=== PATIENT | female | born 1985 | race Caucasian/White ===

== ENCOUNTER → 2018-10-30 13:24 | Outpatient (REF) | payer OTHER, SELFPAY ==
[2018-10-30 14:08] LABS: Influenza A and B by PCR Rapid Negative (Negative)
== END ==
LOC: LAB 13:24
PROVIDERS: Visit Provider Registered Nurse
DX: R50.9 Fever, unspecified (principal); J02.9 Acute pharyngitis, unspecified
CPT/HCPCS: 87400

== ENCOUNTER → 2019-08-06 09:33 | Outpatient (ROUT) | payer OTHER, SELFPAY ==
[2019-08-06 10:14] LABS: Influenza A - CEPHEID Flu A NEGATIVE (NEGATIVE); Influenza B - CEPHEID Flu B NEGATIVE (NEGATIVE)
[2019-08-06 13:14] LABS: Strep Grp A by PCR Rapid Negative
== END ==
PROVIDERS: Visit Provider Registered Nurse
DX: R05 Cough (principal); J02.9 Acute pharyngitis, unspecified
CPT/HCPCS: 87081; 87502; 87651

== ENCOUNTER → 2019-09-19 13:30 | Outpatient (CLI) | payer OTHER, SELFPAY ==
[2019-09-19 14:15] LABS: Influenza A - CEPHEID Flu A NEGATIVE (NEGATIVE); Influenza B - CEPHEID Flu B NEGATIVE (NEGATIVE)
== END ==
PROVIDERS: Visit Provider Nurse Practitioner
DX: J11.1 Influenza due to unidentified influenza virus with other respiratory manifestations (principal)
CPT/HCPCS: 87502

== ENCOUNTER → 2019-09-19 13:59 | Outpatient (CLI) | payer OTHER, SELFPAY ==
[2019-09-19 14:23] LABS: Monotest Negative (Negative)
== END ==
PROVIDERS: Referring Provider Nurse Practitioner; Visit Provider Nurse Practitioner
DX: J11.1 Influenza due to unidentified influenza virus with other respiratory manifestations (principal)
CPT/HCPCS: 36415; 86318; 87502

== ENCOUNTER 2019-10-04 16:11 | Emergency (ER) | payer OTHER, SELFPAY ==
[2019-10-04 16:21] VITALS: BP 119/70; PULSE 98; RESP 18; TEMP 37.1; O2SAT 100; BMI 35.9
--- NOTE | 2019-10-04 17:27 | DI.RAD.S_ITS ---
PROCEDURE: XR CHEST 2V INDICATIONS: chest pain, cough, fever, dizziness TECHNIQUE: 2 views of the chest were acquired. COMPARISON: None. FINDINGS: Surgical changes and devices: None. Lungs and pleura: Lungs are clear. No pleural effusions or pneumothorax. Mediastinum: Mediastinal contours are normal. Heart size is normal. Bones and chest wall: No suspicious bony abnormalities. Soft tissues appear unremarkable. IMPRESSION: No acute cardiopulmonary pathology. Dictated by: Darnell Fuller M.D. on 10/04/2019 at 17:58 Approved by: Darnell Fuller M.D. on 10/04/2019 at 17:58
[2019-10-04] MEDS: ONDANSETRON 4 MG ODT SL (18:01)
[2019-10-04] MEDS: ACETAMINOPHEN 325 MG TABLET 650 MG PO (18:02)
--- NOTE | 2019-10-04 18:09 | ED.URI ---
HPI - URI/Sore Throat <ESTELA Swan - Last Filed: 10/04/19 19:36> General Chief Complaint: Upper Respiratory Symptoms Stated Complaint: Sick for over 2 months Time Seen by Provider: 10/04/19 16:56 Source: patient Mode of arrival: Ambulatory Limitations: no limitations History of Present Illness HPI Narrative: This is a 33-year-old female, nonsmoker, who presents to ED with on and off body aches, chills, bilateral ear aches, sore throat, dizziness, short of breath, palpitations, fever T-max as 102 since August 02. 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 Patient reports patient has been seen at walk-in clinic and had several tests were conducted for her symptoms including flu swabs, Monospot, strep throat. Patient recently completed amoxicillin for 10 day course 4 days ago. Patient reports history of hypothyroidism and reports had thyroid function test done about 4 months ago. Patient reports she has been hydrated well with liquids without nausea or vomiting. Related Data Home Medications Medication Instructions Recorded Confirmed VITAMIN D (Vitamin D3) 2,000 units PO #0 09/21/17 09/19/19 multivitamin [Multiple Vitamins] 1 tab PO QDAY #0 09/21/17 09/19/19 tretinoin [Retin-A] #0 09/21/17 09/19/19 vit C,C-Uz-txucq-lutein-zeaxan 1 cap PO QDAY #0 09/21/17 09/19/19 [Ocuvite Lutein and Zeaxanthin] norethindrone (contraceptive) 0.35 mg PO DAILY 10/04/19 10/04/19 [Norlyda] Previous Rx's Medication Instructions Recorded amoxicillin-pot clavulanate 1 tab PO BID 7 Days #14 tab 10/04/19 [Augmentin] Allergies Allergy/AdvReac Type Severity Reaction Status Date / Time No Known Drug Allergies Allergy Verified 10/04/19 19:32 Review of Systems <ESTELA Swan - Last Filed: 10/04/19 19:36> Review of Systems Narrative: General: See HPI HEENT: Denies sinus pain, (+) ear pain, (+) sore throat, difficulty swallowing, (+) dizziness. Respiratory: Denies (+) dyspnea, (+) cough, wheezing, hemoptysis, sputum. Cardiovascular: Denies chest pain, (+) palpitations, orthopnea, edema. Gastrointestinal: Denies nausea, vomiting, abdominal pain, diarrhea, constipation, melena. : Denies dysuria, frequency, incontinence, hematuria, urinary retention. Musculoskeletal: Denies weakness, joint pain or bony pain. Skin: Denies rash, skin lesions, or other. Neurologic: Denies weakness, headache, numbness, change in speech, confusion, seizures, incoordination. Psychiatric: No concerning psychosocial issues. 12-point review of systems is negative except for those stated above. Patient History <ESTELA Swan - Last Filed: 10/04/19 19:36> Medical History Hypothyroidism (Acute) Surgical History S/P tonsillectomy and adenoidectomy (Acute) Social History Smoking Status: Never smoker Smoking Status: Never smoker alcohol intake frequency: a few times a month Substance Use Type: does not use Exam <ESTELA Swan - Last Filed: 10/04/19 19:36> Narrative Exam Narrative: GEN: Alert, oriented x 3, well appearing and nourished, and in no acute distress. Head: Normal cephalic, atraumatic. No scalp or temporal tenderness, palpable mass or rash. EYES: Pupils are equal, round, and reactive to light and accommodation. Extraocular muscles are intact bilaterally. There is no subconjunctival hemorrhage, exudate and sclera non-icteric. ENT: Bilateral auditory canals and tympanic membranes injected and dull. Hearing grossly intact. Nose without bleeding, purulent discharge or deviation. Facial sinuses nontender to palpate. Mucous membrane moist, no mucosal lesion. Throat without erythema, tonsillar hypertrophy or exudate. Uvula in midline, airway patent. Neck: Trachea in midline. No JVD, non-tender with anterior cervical lymphadenopathy. No masses or thyroid megaly. Supple, non-tender and no meningeal signs. CARDIAC: Normal regular rate and rhythm without murmurs, gallops, or rubs. No chest wall tenderness. No peripheral edema, cyanosis or pallor. Capillary refill is less than 2 seconds. RESPIRATORY: Lungs are clear to auscultate bilaterally. No cough, wheezes, rales, or rhonchi. No stridor, respiratory distress, increase work of breathing, or accessary muscle used. ABD: Abdomen soft, nontender and non-distended. No guarding or rebound tenderness to palpate. Bowel sounds are normal in all 4 quadrants. There is no palpable masses or organomegaly. EXT: Full painless ROM of all extremities with no loss of sensation, strength, effusion or edema. SKIN: Warm, dry, normal color for patient. No erythema, lesions or rash over visible areas. BACK: Nontender without deformity or crepitance. No flank tenderness. NEUROLOGICAL: Alert and oriented to place, time and person. Sensation and motor function intact bilaterally. No facial droops, dysphasia. PSYCHIATRIC: Good judgement and reason, without hallucinations, abnormal affect or abnormal behaviors during the examination. Initial Vital Signs Initial Vital Signs: Vital Signs Temperature 98.7 F 10/04/19 16:21 Pulse Rate 98 H 10/04/19 16:21 Respiratory Rate 18 10/04/19 16:21 Blood Pressure 119/70 10/04/19 16:21 Pulse Oximetry 100 10/04/19 16:21 <Andre Hester DO - Last Filed: 10/06/19 07:00> Initial Vital Signs Initial Vital Signs: Vital Signs Temperature 98.7 F 10/04/19 16:21 Pulse Rate 98 H 10/04/19 16:21 Respiratory Rate 18 10/04/19 16:21 Blood Pressure 119/70 10/04/19 16:21 Pulse Oximetry 100 10/04/19 16:21 Scores <ESTELA Swan - Last Filed: 10/04/19 19:36> GCS Luc coma scale eye opening: Spontaneous Luc coma scale verbal response: Orientated Luc coma scale motor response: Obey commands [place] coma scale total score: 15 Course <ESTELA Swan - Last Filed: 10/04/19 19:36> Orders Ordered: Discontinued Medications Acetaminophen (Tylenol) 650 mg PO NOW ONE Stop: 10/04/19 17:28 Last Admin: 10/04/19 18:02 Dose: 650 mg Documented by: ORIANA Ondansetron HCl (Zofran Odt) 4 mg SL NOW ONE Stop: 10/04/19 17:28 Last Admin: 10/04/19 18:01 Dose: 4 mg Documented by: ORIANA Vital Signs Vital signs: Vital Signs - 8 hr 10/04/19 16:21 Temperature 98.7 F Pulse Rate 98 H Respiratory Rate 18 Blood Pressure 119/70 Pulse Oximetry 100 <Andre Hester DO - Last Filed: 10/06/19 07:00> Orders Ordered: Discontinued Medications Acetaminophen (Tylenol) 650 mg PO NOW ONE Stop: 10/04/19 17:28 Last Admin: 10/04/19 18:02 Dose: 650 mg Documented by: ORIANA Ondansetron HCl (Zofran Odt) 4 mg SL NOW ONE Stop: 10/04/19 17:28 Last Admin: 10/04/19 18:01 Dose: 4 mg Documented by: ORIANA Vital Signs Vital signs: Vital Signs - 8 hr 10/04/19 16:21 Temperature 98.7 F Pulse Rate 98 H Respiratory Rate 18 Blood Pressure 119/70 Pulse Oximetry 100 MDM - URI/Sore Throat <ESTELA Swan - Last Filed: 10/04/19 19:36> Differential Diagnosis Differential diagnosis: Likely upper respiratory infection, otitis media, viral infection and influenza Medical Records Attestation: I reviewed the patient's medical records. Lab Data Attestation: I reviewed the patient's lab results. Result diagrams: 10/04/19 17:55 Labs: Lab Results 10/04/19 10/04/19 10/04/19 Range/Units 17:55 17:55 18:04 Sodium 139 (137-145) mmol/L Potassium 3.7 (3.4-5.1) mmol/L Chloride 100 (98-107) mmol/L Carbon Dioxide 28 (22-32) mmol/L BUN 12 (7-17) mg/dL Creatinine 0.80 (0.52-1.04) mg/dL Estimated GFR > 60.0 (>60) mL/min BUN/Creatinine Ratio 15.0 (6-22) Glucose 120 H (70-100) mg/dL Calcium 10.2 (8.4-10.2) mg/dL TSH 1.17 (0.47-4.68) uIU/mL Free T4 1.27 (0.78-2.19) ng/dL Influenza A (RT-PCR) Flu a negative (NEGATIVE) Influenza B (RT-PCR) Flu b negative (NEGATIVE) Point of Care Testing Test Results Negative Urine Dip Bedside Urine Glucose Negative Bedside Urine Bilirubin - Negative Bedside Urine Ketone - Negative Urine Specific [place] 1.015 Bedside Urine Occult Blood - Negative Bedside Urine pH 6.5 Bedside Urine Protein - Negative Bedside Urine Urobilinogen - Negative Bedside Urine Nitrite - Negative Bedside Urine Leukocytes - Negative Esterase Imaging Data Chest x-ray: Radiologist's Impression: [address] [address] XRay Report Signed Patient: Ernestine Romeo EMR#: [id number] : 1985Acct:[id number] Age/Sex: te of Service: 10/04/19 Loc: ED Accession Number: [id number] Procedure: XR chest 2V Ordering Provider: Serg Cuellar PROCEDURE: XR CHEST 2V INDICATIONS: chest pain, cough, fever, dizziness TECHNIQUE: 2 views of the chest were acquired. COMPARISON: None. FINDINGS: Surgical changes and devices: None. Lungs and pleura: Lungs are clear. No pleural effusions or pneumothorax. Mediastinum: Mediastinal contours are normal. Heart size is normal. Bones and chest wall: No suspicious bony abnormalities. Soft tissues appear unremarkable. IMPRESSION: No acute cardiopulmonary pathology. Dictated by: Darnell Fuller M.D. on 10/04/2019 at 17:58 Approved by: Darnell Fuller M.D. 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 Patient's flu swab was negative. Chest x-ray was negative for acute findings. Obtained TSH and free T4 due to patient's complaining of palpitation, lightheadedness, dizziness which were within normal limits. Bilateral ear exam are consistent with otitis media with injected and dull appearance. Patient reports discomfort in anterior cervical lymph nodes and went bilateral ears were tugged. Patient recently completed amoxicillin and she will be treated with Augmentin b.i.d. dose for 7 days. Patient advised to take utji-pcy-cgkxfkv Tylenol and or Motrin as needed for discomfort. Return precautions were discussed and patient verbalized understanding and agreement with the treatment plan. <Andre Hester DO - Last Filed: 10/06/19 07:00> Lab Data Labs: Lab Results 10/04/19 10/04/19 10/04/19 Range/Units 17:55 17:55 18:04 Sodium 139 (137-145) mmol/L Potassium 3.7 (3.4-5.1) mmol/L Chloride 100 (98-107) mmol/L Carbon Dioxide 28 (22-32) mmol/L BUN 12 (7-17) mg/dL Creatinine 0.80 (0.52-1.04) mg/dL Estimated GFR > 60.0 (>60) mL/min BUN/Creatinine Ratio 15.0 (6-22) Glucose 120 H (70-100) mg/dL Calcium 10.2 (8.4-10.2) mg/dL TSH 1.17 (0.47-4.68) uIU/mL Free T4 1.27 (0.78-2.19) ng/dL Influenza A (RT-PCR) Flu a negative (NEGATIVE) Influenza B (RT-PCR) Flu b negative (NEGATIVE) Point of Care Testing Test Results Negative Urine Dip Bedside Urine Glucose Negative Bedside Urine Bilirubin - Negative Bedside Urine Ketone - Negative Urine Specific [place] 1.015 Bedside Urine Occult Blood - Negative Bedside Urine pH 6.5 Bedside Urine Protein - Negative Bedside Urine Urobilinogen - Negative Bedside Urine Nitrite - Negative Bedside Urine Leukocytes - Negative Esterase Discharge Plan Departure Patient Disposition: Home Clinical Impression: Upper respiratory infection Qualifiers: URI type: unspecified URI Qualified Code(s): J06.9 - Acute upper respiratory infection, unspecified Otitis media Qualifiers: Otitis media type: unspecified Chronicity: acute Qualified Code(s): H66.90 - Otitis media, unspecified, unspecified ear Discharge Date/Time: 10/04/19 19:45 Instructions: DI for Middle Ear Infection-Adult Activity Restrictions/Additional Instructions: You have been diagnosed with [otitis media, middle ear infection. Flu swab test was negative today. Chest x-ray shows no indication for pneumonia. Urine test does not indicate infection. TSH and Free T4 levels were all within normal. Your symptoms such as dizziness, palpitation, lightheadedness, short of breath, body aches, fever are likely related to upper respiratory infection. However your middle ears are looking red and dull. Will treat you with another course of antibiotic medication. Please incorporate with probiotics if you do have to protect your GI]. What to do: *Take your medications as directed. Take Augmentin twice a day for next 7 days. This medication has been transmitted to [facility] in [facility]. You can take rxui-cgy-htjrsrk Tylenol and or Motrin as needed for discomfort. Please increase oral hydration. Good hand hygiene could prevent transmitting illness to others. *Follow up with your primary care provider in 2-3 days, call for an appointment. Let them know you were seen in the ED and that we asked you to be seen in follow up. *Return to ED if you have any new, worsening, or concerning symptoms, such as [chest pain, breathing difficulty, unable to tolerate fluids, high fever, severe pain, or any acute concerns]. Prescriptions: New amoxicillin-pot clavulanate [Augmentin] 875-125 mg tablet 1 tab PO BID 7 Days Qty: 14 RF: 0 No Action multivitamin [Multiple Vitamins] 1 EACH tablet 1 tab PO QDAY Qty: 0 RF: 0 tretinoin [Retin-A] 0.025 % cream Qty: 0 RF: 0 vit C,W-Hg-kosfs-lutein-zeaxan [Ocuvite Lutein and Zeaxanthin] 1 EACH capsule 1 cap PO QDAY Qty: 0 RF: 0 VITAMIN D (Vitamin D3) 2,000 units PO Qty: 0 RF: 0 norethindrone (contraceptive) [Norlyda] 0.35 mg tablet 0.35 mg PO DAILY RF: 0 Referrals: Mariama Gomez ARNP [Primary Care Provider] - <Andre Hester DO - Last Filed: 10/06/19 07:00> Sign Out Provider Sign Out Attestation: Dr Hester Co-Sign Statement: I was available for consultation during this patient's emergency department visit. This chart is signed by myself for administrative purposes only. I did not have direct contact with this patient during this visit. They were seen independently by the APC.
[2019-10-04 18:13] LABS: Blood Urea Nitrogen 12 mg/dL (7-17); Calcium 10.2 mg/dL (8.4-10.2); Carbon Dioxide 28 mmol/L (22-32); Chloride 100 mmol/L (98-107); Estimated Glomerular Filt Rate > 60.0 mL/min (>60); Glucose 120 mg/dL (70-100); HEMOLYSIS < 15 (0-50); Potassium 3.7 mmol/L (3.4-5.1); Sodium 139 mmol/L (137-145)
[2019-10-04 18:56] LABS: Influenza A - CEPHEID Flu A NEGATIVE (NEGATIVE); Influenza B - CEPHEID Flu B NEGATIVE (NEGATIVE)
[2019-10-04 19:01] LABS: Free T4, Direct Thyroxine 1.27 ng/dL (0.78-2.19)
[2019-10-04 19:14] LABS: Thyroid Stimulating Hormone 1.17 uIU/mL (0.47-4.68)
[2019-10-04 19:44] VITALS: BP 120/73; PULSE 90; RESP 18; TEMP 37.1; O2SAT 98
== END 2019-10-04 19:45 | disposition home or self-care (01) ==
PROVIDERS: Emergency Provider Nurse Practitioner Family; PCP Nurse Practitioner Family
DX: J06.9 Acute upper respiratory infection, unspecified (principal); H66.90 Otitis media, unspecified, unspecified ear; R07.9 Chest pain, unspecified; R05 Cough; R50.9 Fever, unspecified; R42 Dizziness and giddiness
CPT/HCPCS: 36415; 71046; 80048; 81003; 81025; 84439; 84443; 87502; 99284

== ENCOUNTER → 2019-10-18 14:56 | Outpatient (CLI) | payer OTHER, SELFPAY ==
[2019-10-18 15:30] LABS: Add Manual Diff / Slide Review NO; Basophils Absolute Auto 100 /uL (0-100); Basophils Percent Auto 0.5 % (0-2); Eosinophils Absolute Auto 600 /uL (0-450); Eosinophils Percent Auto 5.4 % (2-4); Hematocrit 39.2 % (36-46); Hemoglobin 13.4 g/dL (12.0-16.0); Lymphocytes Absolute Auto 2600 /uL (1100-4500); Lymphocytes Percent Auto 25.2 % (25-40); Mean Corpuscular HGB Conc 34.1 % (30-36); Mean Corpuscular Hemoglobin 31.3 PG (26-34); Mean Corpuscular Volume 91.8 fL (80-100); Monocytes Absolute Auto 500 /uL (0-900); Monocytes Percent Auto 4.5 % (3-14); Neutrophils Absolute Auto 6700 /uL (1500-7000); Neutrophils Percent Auto 64.4 % (50-75); Platelet Count 339 X10^3/uL (150-400); Red Blood Cell Count 4.27 X10^6/uL (4.0-5.2); Red Cell Distribution Width 13.3 % (11.6-14.8); White Blood Cell Count 10.4 X10^3/uL (4.5-11.0)
[2019-10-18 22:05] LABS: Influenza A - CEPHEID Flu A NEGATIVE (NEGATIVE); Influenza B - CEPHEID Flu B NEGATIVE (NEGATIVE)
[2019-11-02 18:39] LABS: COVID19 Sendout Not Detected (Not Detected)
== END ==
PROVIDERS: PCP Nurse Practitioner Family; Visit Provider Family Medicine
DX: R05 Cough (principal); R50.9 Fever, unspecified
CPT/HCPCS: 85025; 87502

== ENCOUNTER → 2019-10-18 15:31 | Outpatient (CLI) | payer OTHER, SELFPAY ==
--- NOTE | 2019-10-18 15:36 | DI.RAD.S_ITS ---
PROCEDURE: XR CHEST 2V INDICATIONS: Persistent cough with fever TECHNIQUE: 2 views of the chest were acquired. COMPARISON: [facility], CR, XR CHEST 2V, 10/04/2019, 17:35. FINDINGS: Surgical changes and devices: None. Lungs and pleura: Lungs are clear. No pleural effusions or pneumothorax. Mediastinum: Mediastinal contours are normal. Heart size is normal. Bones and chest wall: No suspicious bony abnormalities. Soft tissues appear unremarkable. IMPRESSION: Normal for age, source of current cough symptoms is not seen. Dictated by: Wayne Rose M.D. on 10/18/2019 at 16:53 Approved by: Wayne Rose M.D. on 10/18/2019 at 16:53
== END ==
PROVIDERS: PCP Nurse Practitioner Family; Referring Provider Family Medicine; Visit Provider Family Medicine
DX: J40 Bronchitis, not specified as acute or chronic (principal); R05 Cough; R50.9 Fever, unspecified
CPT/HCPCS: 71046; 85025; 87502; 87635

== ENCOUNTER → 2020-05-30 08:32 | Outpatient (CLI) | payer OTHER, SELFPAY ==
[2020-05-30 10:19] LABS: Hematocrit 40.9 % (36-46); Hemoglobin 13.8 g/dL (12.0-16.0); Mean Corpuscular HGB Conc 33.6 % (30-36); Mean Corpuscular Hemoglobin 31.1 PG (26-34); Mean Corpuscular Volume 92.4 fL (80-100); Platelet Count 329 X10^3/uL (150-400); Red Blood Cell Count 4.42 X10^6/uL (4.0-5.2); Red Cell Distribution Width 12.4 % (11.6-14.8); White Blood Cell Count 7.9 X10^3/uL (4.5-11.0)
[2020-05-30 10:33] LABS: Alanine Aminotransferase 51 IU/L (<35); Albumin 4.5 g/dL (3.5-5.0); Albumin Globulin Ratio 1.3 (1.0-2.8); Alkaline Phosphatase 69 U/L (38-126); Aspartate Aminotransferase 37 IU/L (14-36); Bilirubin Total 0.6 mg/dL (0.2-1.3); Blood Urea Nitrogen 16 mg/dL (7-17); Calcium 9.3 mg/dL (8.4-10.2); Carbon Dioxide 27 mmol/L (22-32); Chloride 103 mmol/L (98-107); Estimated Glomerular Filt Rate > 60.0 mL/min (>60); Globulin 3.4 g/dL (1.7-4.1); Glucose 100 mg/dL (70-100); HEMOLYSIS < 15 (0-50); Potassium 4.2 mmol/L (3.4-5.1); Sodium 136 mmol/L (137-145); Total Protein 7.9 g/dL (6.3-8.2)
[2020-05-30 10:58] LABS: Thyroid Stimulating Hormone 1.84 uIU/mL (0.47-4.68)
[2020-05-30 11:17] LABS: Vitamin B12 485 pg/mL (239-931)
[2020-05-30 12:02] LABS: Folate 17.8 ng/mL (2.76-20.0)
== END ==
PROVIDERS: PCP Nurse Practitioner Family; Referring Provider Nurse Practitioner Family; Visit Provider Nurse Practitioner Family
DX: R53.83 Other fatigue (principal)
CPT/HCPCS: 36415; 80053; 82607; 82746; 84443; 85027

== ENCOUNTER → 2020-08-29 13:58 | Outpatient (CLI) | payer OTHER, SELFPAY ==
--- NOTE | 2020-08-29 14:01 | DI.MG.S_ITS ---
BILATERAL DIGITAL DIAGNOSTIC MAMMOGRAM 3D/2D: 08/29/2020 CLINICAL: Baseline exam. Mastodynia. No prior exams were available for comparison. The tissue of both breasts is extremely dense, which lowers the sensitivity of mammography. No significant masses, calcifications, or other findings are seen in the left breast. IMPRESSION: INCOMPLETE: NEEDS ADDITIONAL IMAGING EVALUATION There is no abnormality seen in the left breast to correspond with the area of clinical concern and pain, however, ultrasound is recommended. This exam was interpreted at Station ID: [id number]. NOTE: For mammograms, a report in lay terms will be sent to the patient. Approximately 15% of breast malignancies will not be visualized mammographically. In the management of a palpable breast mass, a negative mammogram must not discourage biopsy of a clinically suspicious lesion. Electronically Signed By: Liang Thornton acr/:08/29/2020 15:47:52 letter sent: Additional Imaging Needed ACR BI-RADS Category 0: Incomplete [id number]
--- NOTE | 2020-08-29 15:12 | DI.US.S_ITS ---
Date: 08/29/2020 15:12 At the request of: ERIC DIALLO Procedure: US breast LT limited ULTRASOUND OF LEFT BREAST: 08/29/2020 CLINICAL: Focal left breast pain. Comparison is made to exam dated: 08/29/2020 mammogram - [facility]. Color flow and continuous wave Doppler ultrasound of the left breast were performed. No abnormality which corresponds with the area of pain is seen. IMPRESSION: NEGATIVE There is no sonographic evidence of malignancy. There is no abnormality seen in the left breast to correspond with the area of clinical concern and pain at 12 o'clock. Recommend clinical followup. This exam was interpreted at Station ID: [id number]. Electronically Signed By: Liang Thornton acr/:08/29/2020 15:28:34 letter sent: Clinical Evaluation Ultrasound BI-RADS: 1 Negative
== END ==
PROVIDERS: PCP Nurse Practitioner Family; Referring Provider Nurse Practitioner Family; Visit Provider Nurse Practitioner Family
DX: R92.8 Other abnormal and inconclusive findings on diagnostic imaging of breast (principal); N64.4 Mastodynia
CPT/HCPCS: 76642; 77066; G0279

== ENCOUNTER → 2021-02-02 07:52 | Outpatient (CLI) | payer OTHER, SELFPAY ==
[2021-02-02 09:41] LABS: Alanine Aminotransferase 48 IU/L (<35); Albumin 4.3 g/dL (3.5-5.0); Albumin Globulin Ratio 1.4 (1.0-2.8); Alkaline Phosphatase 54 U/L (38-126); Aspartate Aminotransferase 37 IU/L (14-36); BUN Creatinine Ratio 13.7 (6-22); Bilirubin Total 0.4 mg/dL (0.2-1.3); Bilirubin Unconjugated 0.3 mg/dL (0.0-1.1); Blood Urea Nitrogen 13 mg/dL (7-17); Calcium 9.6 mg/dL (8.4-10.2); Carbon Dioxide 26 mmol/L (22-32); Chloride 105 mmol/L (98-107); Cholesterol 199 mg/dL (140-199); Estimated Glomerular Filt Rate > 60.0 mL/min (>60); Globulin 3.1 g/dL (1.7-4.1); Glucose 98 mg/dL (70-100); HDL Cholesterol 50 mg/dL (40-60); HEMOLYSIS < 15 (0-50); LDL Cholesterol Calculated 136 mg/dL (<100); Potassium 3.9 mmol/L (3.4-5.1); Sodium 135 mmol/L (137-145); Total Protein 7.4 g/dL (6.3-8.2); Triglycerides 65 mg/dL (35-150)
[2021-02-02 09:59] LABS: Free T4, Direct Thyroxine 1.31 ng/dL (0.78-2.19)
[2021-02-02 10:13] LABS: Thyroid Stimulating Hormone 1.66 uIU/mL (0.47-4.68)
== END ==
PROVIDERS: PCP Nurse Practitioner Family; Referring Provider Nurse Practitioner Family; Visit Provider Nurse Practitioner Family
DX: Z01.812 Encounter for preprocedural laboratory examination (principal); F32.9 Major depressive disorder, single episode, unspecified; F41.9 Anxiety disorder, unspecified; Z13.6 Encounter for screening for cardiovascular disorders; R74.8 Abnormal levels of other serum enzymes
CPT/HCPCS: 36415; 80048; 80061; 80076; 84439; 84443

== ENCOUNTER → 2021-02-07 16:31 | Outpatient (CLI) | payer OTHER, SELFPAY ==
[2021-02-07 17:23] LABS: Alanine Aminotransferase 28 IU/L (<35); Albumin 4.5 g/dL (3.5-5.0); Albumin Globulin Ratio 1.5 (1.0-2.8); Alkaline Phosphatase 55 U/L (38-126); Aspartate Aminotransferase 30 IU/L (14-36); Bilirubin Total 0.4 mg/dL (0.2-1.3); Bilirubin Unconjugated 0.3 mg/dL (0.0-1.1); HEMOLYSIS < 15 (0-50); Total Protein 7.5 g/dL (6.3-8.2)
[2021-02-08 05:56] LABS: HBsAg Screen Negative (Negative); Hepatitis A Antibody IgM Negative (Negative); Hepatitis B Core Antibody IgM Negative (Negative); Hepatitis C Antibody 0.1 s/co ratio (0.0-0.9)
[2021-02-09 12:22] LABS: Smooth Muscle Antibody 29 Units (0-19)
[2021-02-09 15:16] LABS: ANA Screen, IFA Negative (.)
== END ==
PROVIDERS: PCP Nurse Practitioner Family; Referring Provider Nurse Practitioner Family; Visit Provider Nurse Practitioner Family
DX: R74.8 Abnormal levels of other serum enzymes (principal)
CPT/HCPCS: 36415; 80074; 80076; 83516; 86038

== ENCOUNTER → 2021-02-09 12:40 | Outpatient (CLI) | payer OTHER, SELFPAY ==
--- NOTE | 2021-02-09 12:41 | DI.US.S_ITS ---
PROCEDURE: US ABDOMEN COMPLETE INDICATIONS: liver enzymes TECHNIQUE: Real-time scanning was performed of the abdominal and retroperitoneal organs, with image documentation. COMPARISON: None. FINDINGS: Liver: Liver is normal in size and homogeneous in echotexture. Gallbladder: Normal appearance. No wall thickening or cholelithiasis. Biliary ducts: Nondilated Pancreas: Visualized portions of the pancreas are sonographically normal. Spleen: Spleen is normal in size and homogeneous in echotexture. Kidneys: Normal appearance without shadowing calculus or hydronephrosis. Aorta: Visualized aorta is normal in caliber at less than 3 cm. Iliacs: Proximal common iliac arteries are normal in caliber at less than 2.5 cm. IVC: Intrahepatic inferior vena cava is patent. Miscellaneous: No free abdominal fluid. IMPRESSION: Normal study. Dictated by: Gregg Howard M.D. on 02/09/2021 at 14:37 Approved by: Gregg Howard M.D. on 02/09/2021 at 14:43
== END ==
PROVIDERS: PCP Nurse Practitioner Family; Referring Provider Nurse Practitioner Family; Visit Provider Nurse Practitioner Family
DX: R74.8 Abnormal levels of other serum enzymes (principal)
CPT/HCPCS: 76700

== ENCOUNTER 2022-04-01 09:57 | Emergency (ER) | payer OTHER, SELFPAY ==
[2022-04-01] VITALS (7 sets, daily range): BP systolic 111–144; BP diastolic 60–70; PULSE 64–83; RESP 16; TEMP 36.8–36.9; O2SAT 98–100; BMI 35.9
[2022-04-01 10:26] LABS: Add Manual Diff / Slide Review NO; Basophils Absolute Auto 0 /uL (0-100); Basophils Percent Auto 0.6 % (0-2); Eosinophils Absolute Auto 200 /uL (0-450); Eosinophils Percent Auto 2.5 % (2-4); Hematocrit 35.9 % (36-46); Hemoglobin 12.3 g/dL (12.0-16.0); Lymphocytes Absolute Auto 1900 /uL (1100-4500); Lymphocytes Percent Auto 26.8 % (25-40); Mean Corpuscular HGB Conc 34.4 % (30-36); Mean Corpuscular Hemoglobin 31.6 PG (26-34); Monocytes Absolute Auto 400 /uL (0-900); Monocytes Percent Auto 5.4 % (3-14); Neutrophils Absolute Auto 4600 /uL (1500-7000); Neutrophils Percent Auto 64.7 % (50-75); Platelet Count 315 X10^3/uL (150-400); Red Cell Distribution Width 12.8 % (11.6-14.8); White Blood Cell Count 7.1 X10^3/uL (4.5-11.0)
--- NOTE | 2022-04-01 10:26 | ED.ABDPAIN ---
HPI - Abdominal Pain General Chief Complaint: Abdominal Pain Stated Complaint: serve adb pain x 2days Time Seen by Provider: 04/01/22 10:04 Source: patient Mode of arrival: Ambulatory History of Present Illness HPI narrative: Ernestine rossi is a 36-year-old woman with abdominal pain for 2 days. She says that Friday and Friday she started have some vague abdominal pain. It was worse yesterday and she took some Maalox and some Pepto-Bismol but that did not make any difference and still felt quite bad. She did have some alcohol Friday night. This morning it is still bothering her quite a bit. She says it feels the same all across her abdomen and perhaps a little bit worse in the lower portions of her abdomen. She specifically denies dysuria, urgency, frequency, vomiting, diarrhea, constipation. She does endorse some nausea. She denies fever. She denies back or flank pain. She denies recent injury. She currently takes oral contraceptive pills. She had a normal period 3 weeks ago. She is sexually active. She has no dyspareunia though she has not had sexual activity since the onset of the symptoms. She has no history of abdominal surgery. Past medical history remarkable for depression and anxiety and hypothyroidism. Related Data Home Medications Medication Instructions Recorded Confirmed cholecalciferol (vitamin D3) 125 125 mcg PO DAILY 08/09/20 12/04/21 mcg (5,000 unit) capsule Previous Rx's Medication Instructions Recorded Hydroquinone 4% Kojic acid 2% See Rx Instructions .Route DAILY 3 10/25/21 tretinoin 0.025% hydrocortisone months #45 grams 0.5% bupropion HCl 150 mg 24 hr tablet, 150 mg PO QAM #90 tabs 10/25/21 extended release levothyroxine 50 mcg capsule 50 mcg PO .COMPLEX #45 caps 10/25/21 levothyroxine 75 mcg tablet See Rx Instructions .Route 10/25/21 .COMPLEX #45 tabs norethindrone (contraceptive) 0.35 See Rx Instructions .Route 03/12/22 mg tablet .COMPLEX #84 tabs ondansetron 4 mg disintegrating 4 mg PO Q6H #10 tabs 04/01/22 tablet Allergies Allergy/AdvReac Type Severity Reaction Status Date / Time No Known Drug Allergies Allergy Verified 04/01/22 10:26 Review of Systems Review of Systems Narrative: Complete review of systems is negative other than as noted in the HPI. Patient History Medical History Anxiety (06/2019) BMI 36.0-36.9,adult Bronchitis Depression (06/2019) Elevated liver enzymes Fatigue Hypothyroidism (2011) Insomnia Melasma Surgical History S/P tonsillectomy and adenoidectomy Social History Smoking Status: Never smoker Smoking Status: Never smoker alcohol intake frequency: a few times a month Substance Use Type: marijuana Exam Narrative Exam Narrative: GENERAL: Alert, cooperative and in no distress. HEAD: Atraumatic. Normocephalic. EYES: Sclera are clear without icterus. Extraocular movements are full. ENT: No rhinorrhea. Oropharynx is moist. Mouth exam is benign. NECK: Supple. Full range of motion. CARDIOVASCULAR: Normal rate and rhythm without murmur gallop or rub. RESPIRATORY: Clear to auscultation. Breath sounds equal bilaterally. No wheezes, rales, or rhonchi. GASTROINTESTINAL: Abdomen is soft. No peritoneal signs. She does have tenderness diffusely and most pronounced in the midepigastrium. Left lower quadrant is also a little bit more tender than the rest. But there is no guarding, rebound or referred tenderness. EXTREMITIES: No edema, full range of motion. No obvious trauma. BACK: Normal inspection, no CVA tenderness. NEURO: Nonfocal examination, normal speech, normal gait. SKIN: No rash or erythema of visible areas PSYCH: Normally oriented. Normal range of affect. Appropriate behavior Initial Vital Signs Initial Vital Signs: Vital Signs Respiratory Rate 16 04/01/22 10:01 Blood Pressure 144/68 H 04/01/22 10:01 Oxygen Delivery Method 04/01/22 10:01 Course Orders Ordered: ED Orders 04/01/22 10:10 Complete Blood Count AUTO DIFF Stat Comprehensive Metabolic Panel Stat HCG Quantitative /Beta subunit Stat Lipase Stat Ondansetron HCl (Ondansetron 4 Mg/2 Ml Inj) 4 mg IV Q2HR PRN PRN Reason: Nausea And Vomiting Last Admin: 04/01/22 10:42 Dose: 4 mg Documented By: HARISH Discontinued Medications Acetaminophen (Acetaminophen 325 Mg Tablet) 975 mg PO NOW ONE Stop: 04/01/22 10:26 Last Admin: 04/01/22 10:42 Dose: 975 mg Documented By: HARISH Sodium Chloride (Normal Saline 0.9%) 1,000 mls @ 1,000 mls/hr IV BOLUS ONE Stop: 04/01/22 11:24 Last Admin: 04/01/22 10:41 Dose: 1,000 mls/hr Documented By: HARISH Ketorolac Tromethamine (Ketorolac 30 Mg/Ml Vial) 15 mg IV NOW ONE Stop: 04/01/22 10:26 Last Admin: 04/01/22 10:42 Dose: 15 mg Documented By: HARISH Pantoprazole Sodium (Pantoprazole 40 Mg Vial) 40 mg IV NOW ONE Stop: 04/01/22 11:59 Vital Signs Vital signs: Vital Signs - 8 hr 04/01/22 10:05 04/01/22 10:01 04/01/22 10:02 Temperature 98.5 F Pulse Rate 83 Respiratory Rate 16 Blood Pressure 144/68 H Pulse Oximetry 98 Oxygen Delivery Method Room Air 04/01/22 11:37 04/01/22 11:38 04/01/22 11:38 Temperature Pulse Rate 80 68 Respiratory Rate 16 Blood Pressure 116/60 Pulse Oximetry 100 100 Oxygen Delivery Method Room Air MDM - Abdominal Pain Lab Data Result diagrams: 04/01/22 10:10 04/01/22 10:10 Labs: Lab Results 04/01/22 04/01/22 Range/Units 10:10 10:10 WBC 7.1 (4.5-11.0) X10^3/uL RBC 3.90 L (4.0-5.2) X10^6/uL Hgb 12.3 (12.0-16.0) g/dL Hct 35.9 L (36-46) % MCV 92.0 (80-100) fL MCH 31.6 (26-34) PG MCHC 34.4 (30-36) % RDW 12.8 (11.6-14.8) % Plt Count 315 (150-400) X10^3/uL Neut % (Auto) 64.7 (50-75) % Lymph % (Auto) 26.8 (25-40) % [place] % (Auto) 5.4 (3-14) % Eos % (Auto) 2.5 (2-4) % Baso % (Auto) 0.6 (0-2) % Neut # (Auto) 4600 (2740-9732) /uL Lymph # (Auto) 1900 (7347-5746) /uL [place] # (Auto) 400 (0-900) /uL Eos # (Auto) 200 (0-450) /uL Baso # (Auto) 0 (0-100) /uL Sodium 136 L (137-145) mmol/L Potassium 4.1 (3.4-5.1) mmol/L Chloride 104 (98-107) mmol/L Carbon Dioxide 27 (22-32) mmol/L BUN 10 (7-17) mg/dL Creatinine 0.88 (0.52-1.04) mg/dL Estimated GFR > 60 (>60) mL/min BUN/Creatinine Ratio 11.4 (6-22) Glucose 101 H (70-100) mg/dL Calcium 9.1 (8.4-10.2) mg/dL Total Bilirubin 0.5 (0.2-1.3) mg/dL AST 29 (14-36) IU/L ALT 33 (<35) IU/L Alkaline Phosphatase 59 (38-126) U/L Total Protein 7.6 (6.3-8.2) g/dL Albumin 4.3 (3.5-5.0) g/dL Globulin 3.3 (1.7-4.1) g/dL Albumin/Globulin Ratio 1.3 (1.0-2.8) Lipase 69 (23-300) U/L Point of care testing: Point of Care Testing Test Results Negative Urine Dip Bedside Urine Glucose Negative Bedside Urine Bilirubin - Negative Bedside Urine Ketone - Negative Urine Specific [place] 1.010 Bedside Urine Occult Blood - Negative Bedside Urine pH 7.5 Bedside Urine Protein - Negative Bedside Urine Urobilinogen +/- 1mg Bedside Urine Nitrite - Negative Bedside Urine Leukocytes - Negative Esterase MDM Narrative Medical decision making narrative: This woman appears well. Laboratory data are reassuring. No fever. Benign abdominal examination except for some mild tenderness without guarding. Moderate improvement with symptomatic medications. I think watchful waiting is appropriate. We did discuss the possibility of ultrasonography versus CT scanning and I do not think it is necessary to do these right now the patient seems comfortable with waiting for now. Careful return precautions given. Discharge Plan Departure Patient Disposition: Home Clinical Impression: Abdominal pain Qualifiers: Abdominal location: epigastric Qualified Code(s): R10.13 - Epigastric pain Activity Restrictions/Additional Instructions: No immediately dangerous cause for her abdominal pain is discovered at this time. Certainly something of consequence may be happening but it is not detectable at this moment. I think watchful waiting is appropriate and safe for now. I recommend bland diet focusing on fluids and liquids for now. I recommend Prilosec daily. This is an [id number]-bzsiism product. For pain I recommend Tylenol and ibuprofen regularly. I have also prescribed ondansetron as needed for nausea. Return to the emergency department right away for worsening symptoms especially if they are associated with fever or uncontrolled pain. Also, recommend follow-up before the weekend at your primary care clinic or urgent care or ER if the symptoms are not improving. Prescriptions: New ondansetron 4 mg tablet,disintegrating 4 mg PO Q6H Qty: 10 0RF No Action norethindrone (contraceptive) 0.35 mg tablet See Rx Instructions .ROUTE .COMPLEX Qty: 84 0RF Dose Instruction: take 1 tablet by mouth once daily Rx Instructions: take 1 tablet by mouth once daily cholecalciferol (vitamin D3) 125 mcg (5,000 unit) capsule 125 mcg PO DAILY levothyroxine 50 mcg capsule 50 mcg PO .COMPLEX Qty: 45 2RF Rx Instructions: 50 mcg PO Every other day; levothyroxine 75 mcg tablet See Rx Instructions .ROUTE .COMPLEX Qty: 45 3RF Dose Instruction: take 1 tablet by mouth every other day Rx Instructions: take 1 tablet by mouth every other day Hydroquinone 4% Kojic acid 2% tretinoin 0.025% hydrocortisone 0.5% See Rx Instructions .ROUTE DAILY 90 Days Qty: 45 1RF Rx Instructions: use sparingly on face daily before bed for 3 months then use 2 days per week bupropion HCl 150 mg tablet extended release 24 hr 150 mg PO QAM Qty: 90 1RF Referrals: Mariama Gomez ARNP [Primary Care Provider] - Stand Alone Forms: Work Release Note
[2022-04-01 10:41] LABS: Alanine Aminotransferase 33 IU/L (<35); Albumin 4.3 g/dL (3.5-5.0); Albumin Globulin Ratio 1.3 (1.0-2.8); Alkaline Phosphatase 59 U/L (38-126); Aspartate Aminotransferase 29 IU/L (14-36); BUN Creatinine Ratio 11.4 (6-22); Bilirubin Total 0.5 mg/dL (0.2-1.3); Blood Urea Nitrogen 10 mg/dL (7-17); Calcium 9.1 mg/dL (8.4-10.2); Carbon Dioxide 27 mmol/L (22-32); Chloride 104 mmol/L (98-107); Estimated Glomerular Filt Rate > 60 mL/min (>60); Globulin 3.3 g/dL (1.7-4.1); Glucose 101 mg/dL (70-100); HEMOLYSIS < 15 (0-50); Lipase 69 U/L (23-300); Potassium 4.1 mmol/L (3.4-5.1); Sodium 136 mmol/L (137-145); Total Protein 7.6 g/dL (6.3-8.2)
[2022-04-01] MEDS: SODIUM CHLORIDE 0.9% 1,000 ML 1000 ML IV (10:41)
[2022-04-01] MEDS: KETOROLAC 30 MG/ML VIAL 15 MG IV (10:42)
[2022-04-01] MEDS: ONDANSETRON 4 MG/2 ML INJ IV (10:42)
[2022-04-01] MEDS: ACETAMINOPHEN 325 MG TABLET 975 MG PO (10:42)
[2022-04-01] MEDS: PANTOPRAZOLE 40 MG VIAL IV (12:05)
== END 2022-04-01 12:15 | disposition home or self-care (01) ==
PROVIDERS: Emergency Provider Family Medicine Addiction Medicine; PCP Nurse Practitioner Family
DX: R10.13 Epigastric pain (principal); R11.0 Nausea
CPT/HCPCS: 36415; 80053; 81003; 81025; 83690; 85025; 96374; 96375; 99284; C9113; J1885; J2405

== ENCOUNTER → 2022-05-29 09:06 | Outpatient (CLI) | payer OTHER, SELFPAY ==
[2022-05-29 12:26] LABS: Influenza A - CEPHEID Flu A NEGATIVE (NEGATIVE); Influenza B - CEPHEID Flu B NEGATIVE (NEGATIVE); Respiratory Syncytial Virus Negative (Negative)
[2022-05-29 12:28] LABS: COVID-19 CEPHEID PCR (VTM/NP) Negative (Negative)
== END ==
PROVIDERS: PCP Nurse Practitioner Family; Visit Provider Nurse Practitioner Family
DX: R05.9 Cough, unspecified (principal)
CPT/HCPCS: 0241U

== ENCOUNTER → 2022-08-22 09:36 | Outpatient (CLI) | payer OTHER, SELFPAY ==
[2022-08-22 11:35] LABS: Hematocrit 40.4 % (36-46); Hemoglobin 13.7 g/dL (12.0-16.0); Mean Corpuscular HGB Conc 33.8 % (30-36); Mean Corpuscular Hemoglobin 31.1 PG (26-34); Mean Corpuscular Volume 91.8 fL (80-100); Platelet Count 337 X10^3/uL (150-400); Red Cell Distribution Width 12.7 % (11.6-14.8)
[2022-08-22 11:41] LABS: Hemoglobin A1C% w Est Avg Glu 5.3 % (4.0-6.0)
[2022-08-22 12:39] LABS: Alanine Aminotransferase 29 IU/L (<35); Alkaline Phosphatase 55 U/L (38-126); Aspartate Aminotransferase 27 IU/L (14-36); BUN Creatinine Ratio 17.4 (6-22); Bilirubin Total 0.4 mg/dL (0.2-1.3); Blood Urea Nitrogen 15 mg/dL (7-17); Calcium 9.4 mg/dL (8.4-10.2); Carbon Dioxide 25 mmol/L (22-32); Chloride 102 mmol/L (98-107); Estimated Glomerular Filt Rate > 60 mL/min (>60); Glucose 89 mg/dL (70-100); HEMOLYSIS < 15 (0-50); Potassium 4.3 mmol/L (3.4-5.1); Sodium 138 mmol/L (137-145); Total Protein 8.1 g/dL (6.3-8.2)
[2022-08-22 12:59] LABS: TSH w/ Reflex to FT4 1.47 uIU/mL (0.47-4.68)
[2022-08-23 17:14] LABS: Albumin 4.7 g/dL (3.5-5.0); Albumin Globulin Ratio 1.4 (1.0-2.8); Globulin 3.4 g/dL (1.7-4.1)
[2022-08-27 07:37] LABS: Insulin Level Total 9.2 uIU/mL (2.6-24.9)
== END ==
PROVIDERS: PCP Family Medicine; Referring Provider Family Medicine; Visit Provider Family Medicine
DX: E03.9 Hypothyroidism, unspecified (principal); E66.9 Obesity, unspecified; R73.9 Hyperglycemia, unspecified; R74.8 Abnormal levels of other serum enzymes
CPT/HCPCS: 36415; 80053; 83036; 83525; 84443; 85027

== ENCOUNTER → 2023-04-09 08:37 | Outpatient (CLI) | payer OTHER, SELFPAY ==
[2023-04-09 09:36] LABS: Cholesterol 236 mg/dL (140-199); HDL Cholesterol 47 mg/dL (40-60); LDL Cholesterol Calculated 168 mg/dL (<100); Triglycerides 107 mg/dL (35-150)
[2023-04-09 09:59] LABS: Free T3, Triiodothyronine Free 3.91 pg/mL (2.77-5.27); Free T4, Direct Thyroxine 1.32 ng/dL (0.78-2.19)
[2023-04-09 10:12] LABS: Thyroid Stimulating Hormone 3.39 uIU/mL (0.47-4.68)
== END ==
PROVIDERS: PCP Family Medicine; Referring Provider Physician Assistant; Visit Provider Physician Assistant
DX: E03.9 Hypothyroidism, unspecified (principal); F32.9 Major depressive disorder, single episode, unspecified; E78.5 Hyperlipidemia, unspecified
CPT/HCPCS: 36415; 80061; 84439; 84443; 84481

== ENCOUNTER → 2023-05-01 09:46 | Outpatient (CLI) | payer OTHER, SELFPAY | PROVIDERS: PCP Family Medicine; Visit Provider Nurse Practitioner Family | DX: R31.9 Hematuria, unspecified (principal) | CPT/HCPCS: 87086 ==

== ENCOUNTER → 2023-05-01 09:55 | Outpatient (CLI) | payer OTHER, SELFPAY ==
--- NOTE | 2023-05-01 09:57 | DI.RAD.S_ITS ---
PROCEDURE: XR ELBOW RT MIN 3V INDICATIONS: Elbow pain TECHNIQUE: 3 views of the elbow were acquired. COMPARISON: None. FINDINGS: Bones: No fractures or dislocations. No suspicious bony lesions. Soft tissues: No elbow joint effusion. No suspicious soft tissue calcifications. IMPRESSION: No acute bony abnormality. Dictated by: Humberto Medel M.D. on 05/01/2023 at 10:57 Approved by: Humberto Medel M.D. on 05/01/2023 at 10:57
== END ==
PROVIDERS: PCP Family Medicine; Referring Provider Nurse Practitioner Family; Visit Provider Nurse Practitioner Family
DX: S50.01XA Contusion of right elbow, initial encounter (principal); X58.XXXA Exposure to other specified factors, initial encounter; R31.9 Hematuria, unspecified
CPT/HCPCS: 73080; 87086

== ENCOUNTER → 2023-07-14 09:05 | Outpatient (CLI) | payer OTHER, SELFPAY ==
[2023-07-14 11:08] LABS: Free T4, Direct Thyroxine 1.27 ng/dL (0.78-2.19)
[2023-07-14 11:22] LABS: Thyroid Stimulating Hormone 1.18 uIU/mL (0.47-4.68)
[2023-07-14 12:40] LABS: Cholesterol 202 mg/dL (140-199); HDL Cholesterol 44 mg/dL (40-60); LDL Cholesterol Calculated 135 mg/dL (<100); Triglycerides 115 mg/dL (35-150)
== END ==
PROVIDERS: PCP Family Medicine; Referring Provider Physician Assistant; Visit Provider Physician Assistant
DX: E03.9 Hypothyroidism, unspecified (principal); E78.5 Hyperlipidemia, unspecified
CPT/HCPCS: 36415; 80061; 84439; 84443; 84481

== ENCOUNTER → 2024-08-06 16:11 | Outpatient (CLI) | payer OTHER, SELFPAY ==
--- NOTE | 2024-08-06 16:13 | DI.RAD.S_ITS ---
PROCEDURE: XR WRIST LT MIN 3V INDICATIONS: Left wrist pain TECHNIQUE: 4 views of the wrist were acquired. COMPARISON: None. FINDINGS: Bones: No fractures or dislocations. No suspicious bony lesions. Soft tissues: No suspicious soft tissue calcifications. IMPRESSION: No acute bony abnormality. Dictated by: Jovan Kaba M.D. on 08/08/2024 at 7:54 Approved by: Jovan Kaba M.D. on 08/08/2024 at 7:55
== END ==
PROVIDERS: PCP Family Medicine; Referring Provider Nurse Practitioner Family; Visit Provider Nurse Practitioner Family
DX: S66.912A Strain of unspecified muscle, fascia and tendon at wrist and hand level, left hand, initial encounter (principal); X58.XXXA Exposure to other specified factors, initial encounter
CPT/HCPCS: 73110

== ENCOUNTER → 2024-10-06 09:38 | Outpatient (CLI) | payer OTHER, SELFPAY ==
[2024-10-06 10:51] LABS: Add Manual Diff / Slide Review NO; Basophils Absolute Auto 0 /uL (0-100); Basophils Percent Auto 0.5 % (0-2); Eosinophils Absolute Auto 200 /uL (0-450); Eosinophils Percent Auto 2.5 % (2-4); Hematocrit 40.9 % (36-46); Hemoglobin 14.2 g/dL (12.0-16.0); Lymphocytes Absolute Auto 2300 /uL (1100-4500); Lymphocytes Percent Auto 28.4 % (25-40); Mean Corpuscular HGB Conc 34.7 % (30-36); Mean Corpuscular Volume 92.2 fL (80-100); Monocytes Absolute Auto 300 /uL (0-900); Monocytes Percent Auto 4.1 % (3-14); Neutrophils Absolute Auto 5200 /uL (1500-7000); Neutrophils Percent Auto 64.5 % (50-75); Platelet Count 385 X10^3/uL (150-400); Red Blood Cell Count 4.44 X10^6/uL (4.0-5.2); Red Cell Distribution Width 12.9 % (11.6-14.8)
[2024-10-06 11:15] LABS: Alanine Aminotransferase 45 IU/L (<35); Albumin 4.6 g/dL (3.5-5.0); Albumin Globulin Ratio 1.5 (1.0-2.8); Alkaline Phosphatase 52 U/L (38-126); Aspartate Aminotransferase 38 IU/L (14-36); BUN Creatinine Ratio 10.4 (6-22); Bilirubin Total 0.4 mg/dL (0.2-1.3); Blood Urea Nitrogen 11 mg/dL (7-17); Calcium 9.2 mg/dL (8.4-10.2); Carbon Dioxide 25 mmol/L (22-32); Chloride 103 mmol/L (98-107); Cholesterol 248 mg/dL (140-199); Estimated Glomerular Filt Rate > 60 mL/min (>60); Globulin 3.1 g/dL (1.7-4.1); Glucose 94 mg/dL (70-100); HDL Cholesterol 54 mg/dL (40-60); HEMOLYSIS < 15 (0-50); LDL Cholesterol Calculated 170 mg/dL (<100); Sodium 138 mmol/L (137-145); Total Protein 7.7 g/dL (6.3-8.2); Triglycerides 121 mg/dL (35-150)
[2024-10-06 11:28] LABS: Vitamin D 25 Hydroxy (D3) 42.7 ng/mL (30.0-100.0)
[2024-10-06 11:47] LABS: Ferritin 38 ng/mL (6-137)
[2024-10-06 13:15] LABS: Free T3, Triiodothyronine Free 4.26 pg/mL (2.77-5.27); Free T4, Direct Thyroxine 1.16 ng/dL (0.78-2.19)
[2024-10-06 13:28] LABS: Thyroid Stimulating Hormone 1.18 uIU/mL (0.47-4.68)
[2024-10-07 03:36] LABS: CRP, High Sensitivity 5.68 mg/L (0.00-3.00)
[2024-10-07 08:13] LABS: Insulin Level Total 13.4 uIU/mL (2.6-24.9)
== END ==
PROVIDERS: PCP Family Medicine; Referring Provider Family Medicine; Visit Provider Family Medicine
DX: Z00.00 Encounter for general adult medical examination without abnormal findings (principal); F10.91 Alcohol use, unspecified, in remission; E66.01 Morbid (severe) obesity due to excess calories; E78.5 Hyperlipidemia, unspecified; R73.9 Hyperglycemia, unspecified; E03.9 Hypothyroidism, unspecified; L70.9 Acne, unspecified
CPT/HCPCS: 36415; 80053; 80061; 82306; 82627; 82728; 83525; 84402; 84403; 84439; 84443; 84481; 84482; 85025; 86140

== ENCOUNTER → 2024-10-06 13:00 | Outpatient (CLI) | payer OTHER, SELFPAY ==
--- NOTE | 2024-10-06 13:01 | DI.US.S_ITS ---
PROCEDURE: US PERIPH VENOUS LOW EXTREM RT INDICATIONS: RIGHT CALF PAIN. RECENT SURGERY. TECHNIQUE: Real-time imaging, as well as color and pulse Doppler interrogation, were performed of the lower extremity deep veins from the inguinal ligament to the popliteal fossa, with documentation of the visualized calf veins. COMPARISON: None. FINDINGS: The common femoral, femoral, popliteal, and the visualized calf veins are normally compressible, and free of intraluminal thrombus. Color and pulse Doppler demonstrate normal phasic intraluminal flow. There is normal augmentation response to distal compression maneuver. Additional, dedicated ultrasound scanning is performed at the area of calf pain. No focal ultrasound abnormalities are seen within this region. IMPRESSION: No findings of lower extremity deep venous thrombosis. Dictated by: Kennedy Ovalles M.D. on 10/06/2024 at 13:29 Approved by: Kennedy Ovalles M.D. on 10/06/2024 at 13:30
== END ==
PROVIDERS: PCP Family Medicine; Referring Provider Orthopaedic Surgery; Visit Provider Orthopaedic Surgery
DX: Z00.00 Encounter for general adult medical examination without abnormal findings (principal); M79.661 Pain in right lower leg; F10.91 Alcohol use, unspecified, in remission; E66.01 Morbid (severe) obesity due to excess calories; E78.5 Hyperlipidemia, unspecified; R73.9 Hyperglycemia, unspecified; E03.9 Hypothyroidism, unspecified; L70.9 Acne, unspecified
CPT/HCPCS: 36415; 80053; 80061; 82306; 82627; 82728; 83525; 84402; 84403; 84439; 84443; 84481; 84482; 85025; 86140; 93971

== ENCOUNTER 2024-12-23 09:53 | Day surgery (SDC) | payer OTHER, SELFPAY ==
[2024-12-14 10:15] VITALS: BMI 35.9
--- NOTE | 2024-12-23 | PATH_ITS ---
[facility] Accession Number: [id number] No. of containers..01 Tissue . 01 Material submitted: . fallopian tube - BILATERAL FALLOPIAN TUBES . 01 Diagnosis: BILATERAL FALLOPIAN TUBES, BILATERAL LAPAROSCOPIC SALPINGECTOMY: Fallopian tube x2, complete cross-sections; negative for significant atypia. MRV 12/28/2024 1230 Local . 01 Electronically signed: . Carolina Foley MD, Pathologist NPI- [id number] . 01 Gross description: . Received in formalin with two identifiers and bilateral fallopian tubes, are two unoriented fimbriated fallopian tubes, 6.4 x 0.6 cm and 6.6 x 0.7 cm. Both tubes have violaceous, smooth serosa with no cysts identified, and the lumens are stellate and unremarkable. [employer] sections to include one-half of bisected fimbria and cross-sections are submitted as follows: . A1: Longer fallopian tube. A2: [place] fallopian tube. ([id number]) /MRV 12/24/2024 1753 Local . 01 Pathologist provided ICD-10: Z30.2 . 01 CPT . 859505 Specimen Comment: A courtesy copy of this report has been sent to [facility] Pathology Performed at: [address] [facility], [place], [place] [id number] MD Hever Ho MD Phone: [phone]
[2024-12-23] MEDS: SCOPOLAMINE 1 PATCH TOP (10:21)
[2024-12-23] MEDS: LACTATED RINGERS 1,000 ML 42 ML IV (10:21)
[2024-12-23] MEDS: ACETAMINOPHEN 325 MG TABLET 975 MG PO (10:22)
[2024-12-23 10:29] VITALS: BP 114/80; PULSE 90; RESP 16; TEMP 36.4; O2SAT 98; BMI 33.8
--- NOTE | 2024-12-23 11:59 | P.HPOB_ITS ---
History of Present Illness History of Present Illness Narrative: Ernestine Romeo is a 39 year old female with undesired future fertility presenting today for sterilization. She has no new complaints or concerns today, and is certain that she wants to proceed with the procedure. [facility] Medical History (Updated 12/23/24 @ 12:02 by Marleni Gonzalez DO) BMI 37.0-37.9, adult Melasma Elevated liver enzymes Insomnia Anxiety (06/2019) Depression (06/2019) Hypothyroidism (2011) Surgical History (Updated 12/14/24 @ 10:27 by Paula Shahid RN) Hx of thumb surgery (09/2024) History of elective S/P tonsillectomy and adenoidectomy Social History household members: spouse Smoking Status: Never smoker alcohol intake: current substance use type: marijuana (occasional) Meds Home Medications and Allergies Home Medications Medication Instructions Recorded Confirmed Type cyclobenzaprine 5 mg tablet 2.5 mg (1/2 x 5 mg) PO BEDTIME PRN 11/21/23 11/09/24 Rx muscle spasm #30 tabs semaglutide 0.25 mg or 0.5 mg (2 0.25 - 0.5 mg (0.368 - 0.736 mL) 10/20/2412/22 Rx mg/3 mL) subcutaneous pen injector SUBCUT QWEEK #6 mL (Ozempic) levothyroxine 75 mcg tablet 75 mcg PO DAILY #90 tabs 10/21/24 12/23/24 Rx bupropion HCl 150 mg tablet,12 hr 150 mg PO BID #180 tabs 10/26/24 12/23/24 Rx sustained-release sumatriptan succinate 50 mg tablet See Rx Instructions PO .COMPLEX #9 10/26/24 11/09/24 Rx tabs norethindrone (contraceptive) 0.35 0.35 mg PO DAILY #84 tabs 11/25/24 12/23/24 Rx mg tablet (Jencycla) Allergies Allergy/AdvReac Type Severity Reaction Status Date / Time No Known Drug Allergies Allergy Verified 12/23/24 10:10 Review of Systems Review of Systems ROS: Yes All systems reviewed with the patient and are negative except as otherwise documented Exam Vital Signs (past 8 hours): - 05/22/25 10:29 Temperature 97.6 F Pulse Rate 90 Respiratory Rate 16 Blood Pressure 114/80 Pulse Oximetry 98 Oxygen Delivery Method Room Air Oxygen Delivery Method Room Air Const General: healthy appearing, comfortable and No acute distress Resp Effort & Inspection: normal respiratory effort and able to speak in complete sentences Skin General: no rashes or lesions noted Neuro Cognition: normal cognition Speech: speech normal Extrem General: normal to inspection Psych Mood: congruent mood Affect: normal affect Assessment & Plan Assessment and plan (1) Sterilization procedure performed: Status: Acute Assessment & Plan narrative: 39yo with undesired future fertility, previously counseled and consented for robotic-assisted laparoscopic bilateral salpingectomy. She is certain that she does not want to be in the future, and she is aware of the risk of regret. We reviewed risks/benefits of the proposed procedure, as well as post-op expectations. -no abx indicated -VTE risk low, SCDs for ppx -plan for same day procedure Surgery consent We discussed the risks/benefits/alternatives to the proposed procedure, to include but not limited to: -risk of bleeding, requiring medications, blood products, or other procedures as indicated -risk of infection, requiring prolonged hospital stay or other procedures -risk of injury to other structures, including bowel, bladder, blood vessels, nerves, etc. which may also require additional procedures -risk of adverse reaction to anesthesia or medications -risk of venous thromboembolism and associated sequelae -risk of rare complications such as cardiac arrest, or extremely rarely, Patient is aware of the risks, and desires to proceed with planned surgical procedure. Time-Based Coding :: [20min] spent with patient and on the chart (including review of chart, obtaining history, exam, reviewing outside data, placing orders, documenting exam and treatment plan, and counseling patient) on [12/23/24].
--- NOTE | 2024-12-23 13:12 | SUR.OPER ---
Lithotomy on padded OR bed. [place] Pad Positioner under torso. Head on pillow, arms padded and tucked at sides. Legs secured in padded yellow fins stirrups. shoulder strap on
[2024-12-23 13:36] VITALS: BP 116/78; PULSE 103; RESP 13; TEMP 36.4; O2SAT 99
[2024-12-23 13:39] VITALS: BP 121/74; PULSE 93; RESP 16; O2SAT 97
[2024-12-23] MEDS: BUPIVACAINE 0.25% (PF) VIAL 30 ML INJ (13:40)
--- NOTE | 2024-12-23 13:40 | PM.OP.1 ---
Operative Date/Time/Diagnoses Date of procedure: 12/23/24 Time of procedure: 11:45 Pre-op diagnosis: Undesired future fertility Post-op diagnosis: same Procedure & Clinicians Procedure: Robotic-assisted laparoscopic bilateral salpingectomy Same procedure as scheduled: Yes Indications: Undesired future fertility Surgeon: Marleni Gonzalez Click Yes if Unassisted: Yes Anesthesia Type: General Operative Notes Findings: Normal appearing uterus, bilateral fallopian tubes, and bilateral ovaries. Specimen(s): other (bilateral fallopian tubes) Estimated Blood Loss (mL): 5 Blood products transfused: none Procedure in detail: The risks, benefits, indications and alternatives of the procedure were reviewed with the patient and informed consent was obtained. The pt was taken to the operating room where general anesthesia was obtained without difficulty. The pt was then placed in the low lithotomy position using gel-padded Derrek Stirrups. Sequential compression devices were placed bilaterally for VTE prophylaxis. Pt was then prepped and draped in the usual sterile fashion. Attention was then turned to the patient?s abdomen where an 8mm skin incision was made in the inferior aspect of the umbilicus after injection of 0.25% marcaine. An 8mm trocar and sleeve were then carefully introduced into the peritoneal cavity under direct visualization at a 90-degree angle while tenting up the abdominal wall. Intra-peritoneal placement was confirmed under direct visualization with the laparoscope with entry pressure <5mmHg. A pneumoperitoneum was obtained with several liters of CO2 gas, maximum pressure of 15mmHg. Upon entry into the peritoneal cavity, structures immediately below the incision were inspected and found to be free of injury. Two additional 8mm trocars were placed in the lateral aspect of the abdominal wall under direct laparoscopic visualization after injection of 0.25% marcaine at each site. A survey of the pt?s abdomen and pelvis was notable for the above findings. The [employer] robot was then docked, and instruments were inserted through the ports under direct visualization. Using an atraumatic grasper, the left fallopian tube was tented up. In a stepwise fashion, the left fallopian tube was removed from the fimbriated end to the cornual end with ultimate excision of the fallopian tube using the vessel sealer. The same procedure was performed on the patient?s right side to excise the right fallopian tube. Both fallopian tubes were removed from the abdomen via the lateral port sites. All pedicles were re-examined and noted to be hemostatic. The gas was then turned off and all CO2 was removed from the pt?s abdomen. The robot was undocked, and the trocars were removed. The skin incision sites were reapproximated using 4-0 monocryl and dermabond. At the completion of the case the sponge and needle counts were correct x 2. The patient tolerated the procedure well and was taken to the PACU in stable condition. Complications: none Post-operative Condition: stable Disposition: PACU Plan for aftercare: Discharge to home once meeting discharge criteria.
[2024-12-23] MEDS: hydrOXYzine 50 MG/ML INJ 25 MG IM (13:46)
[2024-12-23] MEDS: OXYCODONE IR 5 MG TABLET PO ×2 (13:47→14:40)
[2024-12-23] MEDS: ONDANSETRON 4 MG/2 ML INJ IV (13:47)
[2024-12-23 13:51] VITALS: BP 121/70; PULSE 84; RESP 11; O2SAT 99
[2024-12-23 14:41] VITALS: BP 113/83; PULSE 64; RESP 15; TEMP 36.1; O2SAT 98
== END 2024-12-23 15:06 | disposition home or self-care (01) ==
PROVIDERS: PCP Family Medicine; Referring Provider Student in an Organized Health Care Education/Training Program; Visit Provider Student in an Organized Health Care Education/Training Program
PROC: (CPT 58661; principal; 2024-12-23 11:15)
DX: Z30.2 Encounter for sterilization (principal)
CPT/HCPCS: 58661; J1100; J1171; J2250; J2405; J2704; J3010; J3410; J3490